=== PATIENT | female | born 1965 | race Caucasian/White ===

== ENCOUNTER → 2016-05-12 | Outpatient (CLI) | payer OTHER ==
--- OUTSIDE RECORDS SUMMARY | 2016-05-12 15:46 | XMS REPORT | Continuity of Care Document ---
Author Author [facility] Organization [facility] Address Unknown Phone Unavailable Care Team Providers Care Career And Guidance Counselor Name Role Phone PCP Unavailable Source Comments Some departments are not documenting in the electronic medical record. If you do not see the information that you expected, contact Release of Information in the Health Information Management department at [phone] for further assistance in locating additional records.[facility] Active Allergies and Adverse Reactions Not on File Current Medications Not on file Active Problems Not on file Most Recent Encounters Date Type Specialty Providers Description 05/12/2016 Telephone Oncology Shannon Gomes APRN Navigation Assessment Social History Tobacco Use Types Packs/Day Years Used Date Never Assessed Plan of Care Date Type Specialty Providers Description 06/09/2016 Appointment Oncology Piyush Heredia DO [address] [place] [address] [phone] (Fax) 06/10/2016 Appointment Oncology Shannon Gomes APRN [address] [facility] [address] [place] [address] [phone] (Fax) Health Maintenance Due Date Last Done Comments Physical (Comprehensive) 07/29/1974 Exam Pertussis Vaccine 07/29/1978 Tetanus Vaccine 07/29/1984 Cervical Cancer Screening 07/29/1988 Breast Cancer Screening 2007 Influenza Vaccine 11/05/2016 Results from Last 3 Months Not on file
--- NOTE | 2016-05-13 21:07 | Diagnostic Imaging Report ---
Digital mammogram bilateral screening. This study was compared to the prior exams of 03/27/2015, 02/04/2014, and 01/31/2013. At this time, there are no current complaints. The current study was also evaluated with a Computer Aided Detection (CAD) system. FINDINGS: The fibroglandular tissue in both breasts is dense. This does limit the sensitivity of this exam. Overall, there does not appear to have been any significant change when compared to the prior study. No primary or secondary sign of malignancy is noted. IMPRESSION: There is no radiographic evidence for malignancy. ACR BI-RADS Category 1: Negative. Result letter will be mailed to the patient. Note: At least 10% of breast cancer is not imaged by mammography. Dictated by: Dictated on workstation # [id number]
== END ==
LOC: RAD 15:44
PROVIDERS: ATTEND Obstetrics & Gynecology
DX: Z12.31 Encounter for screening mammogram for malignant neoplasm of breast (principal); Z80.3 Family history of malignant neoplasm of breast; Z15.01 Genetic susceptibility to malignant neoplasm of breast
CPT/HCPCS: 77067

== ENCOUNTER → 2016-06-03 | Outpatient (CLI) | payer OTHER ==
--- NOTE | 2016-06-03 17:08 | Diagnostic Imaging Report ---
Non-OB transvaginal pelvic ultrasound. INDICATION: BRCA gene positive. FINDINGS: The uterus is 9 x 6.3 x 5.1 cm in size. The endometrial stripe is 0.4 cm in thickness. There is a 2.3 x 2.4 x 2.5 cm anterior fundal myometrial mass suggestive of fibroid. There is no other focal lesion seen. The ovaries are not visualized possibly obscured by bowel gas. IMPRESSION: 2.5 cm anterior fundal myometrial fibroid. Dictated by: Dictated on workstation # [id number]
== END ==
LOC: RAD 11:35
PROVIDERS: ATTEND Obstetrics & Gynecology
DX: D25.9 Leiomyoma of uterus, unspecified (principal); Z15.01 Genetic susceptibility to malignant neoplasm of breast
CPT/HCPCS: 76830

== ENCOUNTER → 2020-02-19 | Outpatient (CLI) | payer OTHER ==
--- NOTE | 2020-02-19 22:02 | Diagnostic Imaging Report ---
EXAM: Digital mammogram, bilateral screening. COMPARISON: This study was compared to the prior exams of 05/12/2016, 03/27/2015 and 02/04/2014. At this time, there are no current complaints. The current study was also evaluated with a Computer Aided Detection (CAD) system. FINDINGS: The fibroglandular tissue in both breasts is dense. This does limit the sensitivity of this exam. Overall, there does not appear to have been any significant change when compared to the prior study. No primary or secondary sign of malignancy is noted. IMPRESSION: 1. There is no evidence for malignancy. 2. The patient should have her annual bilateral screening mammogram on schedule in February 2021. ACR BI-RADS Category 1: Negative. Result letter will be mailed to the patient. Note: At least 10% of breast cancer is not imaged by mammography. Dictated by: Dictated on workstation # [id number]
== END ==
LOC: RAD 15:30
PROVIDERS: ATTEND Obstetrics & Gynecology
DX: Z12.31 Encounter for screening mammogram for malignant neoplasm of breast (principal)
CPT/HCPCS: 77063; 77067